=== PATIENT | male | born 1990 | race Caucasian/White ===

== ENCOUNTER 2024-12-29 22:50 | Emergency (ER) | payer OTHER, SELFPAY ==
[2024-12-29 22:51] VITALS: BP 103/78; BMI 24.7
[2024-12-29 23:09] LABS: % Basophils 0.4 % (0-2); % Eosinophils 1.7 % (0-6); % Immature Granulocytes 0.1 % (0-0.5); % Lymphocytes 42.1 % (20.5-51.1); % Monocytes 9.4 % (1.7-9.3); % Neutrophils 46.3 % (42.2-75.2); Absolute Eosinophils 0.1 10^3/uL (0-0.7); Absolute Lymphocytes 2.9 10^3/uL (1.2-3.4); Absolute Monocytes 0.7 10^3/uL (0.1-0.6); Absolute Neutrophils 3.2 10^3/uL (1.4-6.5); Hematocrit 45.1 % (39.0-52.0); Hemoglobin 15.3 g/dL (13.0-18.0); Mean Corp Hgb Conc. 33.9 g/dL (33.0-37.0); Mean Corpuscular Volume 91.3 fL (80.0-94.0); Mean Platelet Volume 11.2 fL (7.4-10.4); Nucleated Red Blood Cells % 0 % (-); Platelet Count 219 10^3/uL (130-400); Red Blood Cell Count 4.94 10^6/uL (4.70-6.10); Red Cell Dist. Width 13.2 % (11.5-14.5); White Blood Cell Count 6.9 10^3/uL (4.8-10.8)
[2024-12-29 23:30] LABS: Blood Urea Nitrogen 35 mg/dl (9-20); Calcium 9.2 mg/dl (8.4-10.2); Carbon Dioxide 25 mmol/L (22-30); Chloride 108 mmol/L (98-107); Estimated Creatinine Clearance 117 ml/min; Glucose 97 mg/dl (70-99); Sodium 142 mmol/L (135-145); eGFR > 60.00
[2024-12-30] VITALS: BP 121/62
[2024-12-30] MEDS: DILAUDID 0.5 MG IV (00:13)
[2024-12-30] MEDS: TORADOL 30 MG IV (00:15)
[2024-12-30] MEDS: DECADRON 10 MG IV (00:16)
[2024-12-30 01:00] VITALS: BP 109/49
[2024-12-30] MEDS: DILAUDID 1 MG IV ×2 (01:28→03:46)
[2024-12-30 02:00] VITALS: BP 117/57
[2024-12-30 03:00] VITALS: BP 113/56
[2024-12-30 04:00] VITALS: BP 111/49
[2024-12-30 05:00] VITALS: BP 103/52
[2024-12-30] MEDS: NORCO 5/325 2 TABLET PO (05:44)
--- NOTE | 2024-12-30 05:58 | ED.GENMED ---
Addendum entered and electronically signed by Meliton Cali DO 12/30/24 08:12:
Call from pharmacy potential interaction with muscle relaxant and hydrocodone instructed the pharmacy to tell the patient not to take his muscle relaxant when using hydrocodone
Original Note:
History of Present Illness
General
Chief Complaint: Musculo-Skeletal Complaint
Source: patient
Time Seen by Provider: 12/29/24 23:39
History of Present Illness
History of Present Illness:
Note:
CHIEF COMPLAINT(S)
Severe lower back pain following a lifting injury.
HISTORY OF PRESENT ILLNESS
The patient is a 34-year-old male who presented with severe lower back pain after lifting heavy weights earlier today. The patient described the onset of pain as sudden and intense, occurring immediately after the lifting attempt. He attempted
self-treatment with Tizanidine, a muscle relaxant, prescribed via telehealth consultation but found it ineffective. The pain is localized to the lower back and does not radiate to the legs, although the patient reports numbness in the legs likely
due to avoiding movement. He describes the pain as exacerbated by movement, particularly when trying to move his legs. The patient denied any shooting pain down his legs, which is noted as a positive indicator that there might not be nerve root
compression.
Upon examination, the patient reported tenderness in the lower back region but no specific spot reproduces the pain when palpated. The pain increases with certain movements. He attempted ibuprofen for pain relief without significant benefit. The
patient expressed concern about potential exacerbation or inability to sleep due to pain and inquired about management options post-visit. The attending physician discussed using anti-inflammatory treatment, including steroids, and pain management
to improve comfort and mobility. The physician educated the patient about the slow nature of recovery and the role of conservative management.
REVIEW OF SYSTEMS
- Musculoskeletal: Severe lower back pain exacerbated by movement, no radiation to legs reported, leg numbness due to immobility.
PHYSICAL EXAM
- General: Alert and oriented, supine positioning.
- Neurologic: Negative straight leg raise test bilaterally, normal motor function in bilateral extremities. Normal gross sensation. No clonus
- Musculoskeletal: No focal tenderness to the midline low back and no significant paraspinal tenderness noted no deformities. No step off.
- Extremities: Warm and well perfused.
Nursing notes reviewed and vital signs reviewed.
PLAN
The patient will receive steroids as an anti-inflammatory treatment along with a course of pain medication, including consideration for morphine to achieve sufficient pain control to enable discharge home. The patient will be advised on the
importance of conservative management and gradual reintroduction of activities. Outpatient monitoring for any signs of neurological deficits will be recommended.
DIFFERENTIAL DIAGNOSIS
The Differential Diagnosis includes, in no particular order and is not limited to:
1. Acute lumbar muscle strain
2. Lumbar disc herniation
3. Lumbar spine sprain
4. Facet joint syndrome
5. Lumbar radiculopathy
6. Compression fracture
7. Sacroiliac joint dysfunction
8. Spinal stenosis
9. Ankylosing spondylitis
10. Paraspinal muscle spasm
CARE-UPDATE
12/30/24 - 02:37
Patient is currently pain-free in a comfortable position and is awake and alert. Observation will continue in the emergency department with a reassessment planned. Currently exhibits no focal motor deficits. Additional pain medication is scheduled
for administration at 3:30 a.m.
CARE-UPDATE
12/30/24 - 05:59
Patient continues to show stable vital signs with no new symptoms reported. Adjusted pain management as patient reports adequate relief with current medication regimen. No changes to the current treatment plan necessary at this time.
Disposition:
SUMMARY OF ENCOUNTER
The patient is a 34-year-old male who presented with severe lower back pain following a lifting incident. He reported sudden and intense onset of pain localized to the lower back without radiation to the legs and no motor weakness. The negative
straight leg raise test and the absence of radiating pain suggested no significant nerve root compression or cauda equina syndrome, making outpatient management with conservative treatment, including NSAIDs, steroids, and pain management,
appropriate. Discharge was considered suitable due to the absence of clinical concerns for severe pathologies such as cauda equina syndrome or epidural abscess.
DISPOSITION
The patient will be discharged with outpatient treatment recommendations including NSAIDs, steroids, and pain management. Instructions were provided to consider MRI if symptoms persist and to seek outpatient physical therapy.
EMERGENCY TREATMENTS ADMINISTERED
The patient received pain medication for symptom relief and was considered for steroids as an anti-inflammatory treatment.
PLAN
The patient was advised on conservative management strategies, the slow nature of recovery, and gradual reintroduction of activities. Outpatient monitoring for any signs of neurological deficits was recommended.
MEDICATION RECONCILIATION
Patient was prescribed NSAIDs and steroids for inflammation and pain management.
MEDICAL DECISION MAKING
1. Number & Complexity of Problems: The primary concern is severe lower back pain following a lifting injury, with differential diagnoses including acute lumbar muscle strain and lumbar disc herniation.
2. Data Reviewed: No acute findings suggesting cauda equina syndrome or epidural abscess were noted during re-evaluation.
3. Risk: Outpatient management deemed appropriate based on symptom control, stable vital signs, and robust follow-up plan to monitor any progression of symptoms.
PATIENT EDUCATION AND COUNSELING
The patient was educated about the nature of his condition, expected slow recovery, importance of conservative management, and the need to gradually reintroduce activities.
FOLLOW-UP INSTRUCTIONS
The patient was instructed to follow up with physical therapy and consider MRI if symptoms do not improve.
PATHOLOGIES TO CONSIDER
- Lumbar disc herniation
- Compression fracture
- Cauda equina syndrome factors were ruled out
- Epidural abscess risks negated through assessment
The patient was advised to return for worsening symptoms or new neurological deficits.
Past History
Past History
ED Past Medical History: None
ED Past Surgical History: Other ([place] tooth)
Social History
Living: with family
Employment: Employed
Phy Exam
Physical Exam
Physical Exam:
.
Course
Orders/Labs/Results
Orders:
Orders
12/29/24 22:58
Basic Metabolic Panel Urgent
Comment: NO K
Complete Blood Count/With Diff Urgent
12/30/24 00:06
Dexamethasone Sod Phosphate [Decadron] 10 mg IV NOW STA
HYDROmorphone [Dilaudid] 0.5 mg IV NOW STA
Ketorolac [Toradol] 30 mg IV NOW STA
12/30/24 01:21
HYDROmorphone [Dilaudid] 1 mg IV NOW STA
12/30/24 03:30
HYDROmorphone [Dilaudid] 1 mg IV NOW ONE
12/30/24 05:23
Hydrocodone 5/APAP 325 [[place] 5/325] 2 tablet PO NOW STA
Abnormal Lab Results
12/29/24
22:58
MPV 11.2 H fL
(7.4-10.4)
Absolute Monos (auto) 0.7 H 10^3/uL
(0.1-0.6)
Monocytes % 9.4 H %
(1.7-9.3)
Chloride 108 H mmol/L
(98-107)
BUN 35 H mg/dl
(9-20)
12/29/24 22:58
12/29/24 22:58
Vital Signs
Initial and Last Documented VS:
Initial Vital Signs
Temp Pulse Resp BP Pulse Ox
98.1 F 68 16 103/78 97
12/29/24 22:51 12/29/24 22:51 12/29/24 22:51 12/29/24 22:51 12/29/24 22:51
Last Documented Vital Signs
Temp Pulse Resp BP Pulse Ox
98.1 F 56 16 103/52 97
12/29/24 22:51 12/30/24 02:13 12/30/24 02:13 12/30/24 05:00 12/30/24 05:59
*Pulse Oximetry
SaO2: 97
Oxygen Mode of Delivery: Room air
Patient hypoxic: no
*Critical Care Note
Total Time (30-74mins, 75-104mins- exclusive of procedures): Not Applicable
ED Attending Note
-
Portions of this chart may have been created with voice recognition software.� Occasional wrong word or��sound alike� substitutions may have occurred due to the inherent limitations of voice recognition software.
Discharge Plan
Departure
Patient Disposition: Home (Routine Discharge)
Date of Disposition: 12/30/24
Time of Disposition: 04:32
Patient with high blood pressure during this ER visit?: No
Discharge Problem:
Low back pain, Injury of lower back
Instructions: Back Pain
Prescriptions:
New
prednisone 10 mg Tablet
See Rx Instructions .ROUTE .COMPLEX Qty: 45 0RF
Rx Instructions:
Take By Mouth:
50 mg daily x3 days, 40 mg daily x3 days,
30 mg daily x3 days, 20 mg daily x3 days,
10 mg daily x3 days
hydrocodone-acetaminophen 5-325 mg tablet
2 tab PO Q6H PRN (Reason: Pain) Qty: 15 0RF
Referrals:
Braulio Hussein DO [Family Provider, General]
Activity Restrictions/Additional Instructions:
Please see your doctor in the next 3 to 5 days for follow-up and reevaluation. Return immediately for motor weakness, numbness, tingling, radiation of the pain to the legs, fevers, worsening pain or any other concerns. If symptoms persist, I will
MRI may be necessary. In addition your doctor may elect to refer you to physical therapy as you improved.
Interventions
Interventions:
*Risk Screen - Suicide Last Done: 12/29/24 22:51
*General Assessment Last Done: 12/29/24 22:51
*Neglect/Abuse Screening Last Done: 12/29/24 22:51
*ED- Fall Risk Assessment Last Done: 12/29/24 22:51
*ED COVID-19 Vaccine History Last Done: 12/29/24 22:51
ED-Musculoskeletal Assessment Last Done: 12/29/24 23:05
Discharge Date and Time
Print Language: HONDURAN
== END 2024-12-30 06:38 | disposition home or self-care (01) ==
LOC: EMR 22:50
PROVIDERS: Student in an Organized Health Care Education/Training Program; EMERGENCY PHYSICIAN Emergency Medicine; FAMILY PHYSICIAN Internal Medicine
DX: M54.50 Low back pain, unspecified (principal); S39.92XA Unspecified injury of lower back, initial encounter; X50.0XXA Overexertion from strenuous movement or load, initial encounter
CPT/HCPCS: 99283; 96374; 96375; 96376; 80048; 85025